=== PATIENT | female | born 1945 | race Caucasian/White ===

== ENCOUNTER 2020-10-01 13:02 | Emergency (ER) | payer MEDICARE, SELFPAY ==
[2020-10-01 13:03] VITALS: BP 100/75; PULSE 87; RESP 19; TEMP 35.1; O2SAT 95; BMI 69.5
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
[2020-10-01 15:02] VITALS: BP 111/77; PULSE 98; RESP 15; O2SAT 99
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
[2020-10-01] MEDS: oxyCODONE 5 MG Tablet 10 MG PO (15:18)
[2020-10-01] MEDS: Ondansetron ODT 4 MG Tablet PO (15:18)
[2020-10-01 15:20] VITALS: O2SAT 98
[2020-10-01 16:45] VITALS: O2SAT 97
[2020-10-01 16:48] LABS: Absolute Lymphocyte Count 1.36 X10^3/uL (0.83-4.51); Absolute Neutrophil Count 14.6 X10^3/uL (2.0-7.7); Basophil# 0.03 X10^3/uL; Basophil% 0.2 % (0-1); Eosinophil# 0.02 X10^3/uL; Eosinophils% 0.1 % (0-5); Hematocrit 38.4 % (37-47); Hemoglobin 12.4 g/dL (12.0-15.0); Lymphocyte # 1.36 X10^3/ul (0.83-4.51); Lymphocyte % 8.1 % (19-41); Mean Corp Hgb Conc 32.3 g/dL (32-36); Mean Corpuscular Hgb 28.8 pg (27.0-32.0); Mean Corpuscular Volume 89.3 fL (81-99); Mean Platelet Vol. 10.2 fl (6.2-12.0); Monocyte# 0.67 X10^3/uL; NRBC Flagged by Analyzer 0 % (0-5); Neutrophil # 14.57 X10^3/uL (2.7-7.7); Neutrophil % 87.2 % (47-70); Platelet Count 285 K/mm3 (150-450); RBC Distribution Width CV 14.4 % (11.6-14.6); RBC Distribution Width SD 46.8 fl (35.1-43.9); White Blood Count 16.7 K/mm3 (4.4-11.0)
[2020-10-01] MEDS: Morphine 4 MG/ML Syringe IV (16:53)
[2020-10-01 17:00] VITALS: BP 134/99; PULSE 99; RESP 20; TEMP 36.7; O2SAT 99
[2020-10-01 17:15] LABS: AST(SGOT) 20 U/L (15-37); Alanine Aminotransfer ALT/SGPT 29 U/L (13-56); Albumin, Serum 4.3 g/dL (3.2-5.0); Alkaline Phosphatase 99 U/L (45-117); Anion Gap 5 (5-15); BUN 11 mg/dL (7-18); BUN/Creat Ratio 10.1 RATIO (10-20); Calcium,Total 9.6 mg/dL (8.5-10.1); Chloride 103 mmol/L (98-107); Creatinine, Serum 1.09 mg/dL (0.55-1.02); EST Glomerular Filtration Rate 52 mL/min (>60); Est Glom Filt Rate - Afr Amer 63 mL/min (>60); Estimated Creatinine Clearance 34.69 ml/min; Globulin 4.3 g/dL (2.2-4.2); Glucose 215 mg/dL (74-106); Potassium 4.5 mmol/L (3.5-5.1); Protein, Total 8.6 g/dL (6.4-8.2); Sodium Level 136 mmol/L (136-145)
--- NOTE | 2020-10-01 17:16 | NURSING ---
ACCEPTED AT [facility] THROUGH ER
--- NOTE | 2020-10-01 17:54 | NURSING ---
CALLED [facility], TALKED TO HERACLIO ETA IS 60 TO 75 MIN
[2020-10-01] MEDS: Ketorolac 30 MG/ML Syringe IV (18:40)
[2020-10-01 18:47] VITALS: BP 124/87; PULSE 97; RESP 19; O2SAT 98
== END 2020-10-01 19:09 | disposition short-term general hospital (02) ==
PROVIDERS: Emergency Provider Emergency Medicine
DX: S27.0XXA Traumatic pneumothorax, initial encounter (principal); S22.42XA Multiple fractures of ribs, left side, initial encounter for closed fracture; E66.9 Obesity, unspecified; V43.52XA Car driver injured in collision with other type car in traffic accident, initial encounter; Y93.I9 Activity, other involving external motion; Y92.410 Unspecified street and highway as the place of occurrence of the external cause; Y99.8 Other external cause status
CPT/HCPCS: 71101; 71250; 72040; 73030; 80053; 85025; 96374; 96375; 99285; A4216